=== PATIENT | female | born 1950 | race Caucasian/White ===

== ENCOUNTER 2017-01-30 01:06 | Inpatient (IN) | payer OTHER ==
[2017-01-30] VITALS (7 sets, daily range): BP systolic 110–130; BP diastolic 44–63
[~2017-01-30] VITALS: Ht 165.1 cm; Wt 64.0 kg
[2017-01-30 02:40] LABS: CALCIUM 9.1 mg/dL (8.5-10.1); CARBON DIOXIDE 26.2 mmol/L (21-32); CHLORIDE SERUM 99 mmol/L (98-107); CREATININE SERUM 0.7 mg/dL (0.6-1.0); GFR1 > 60 mL/min; GLUCOSE SERUM 133 mg/dL (74-106); POTASSIUM SERUM 4.1 mmol/L (3.5-5.1); SODIUM SERUM 135 mmol/L (136-145)
[2017-01-30 02:44] LABS: ALBUMIN 3.4 g/dL (3.4-5.0); ALKALINE PHOSPHATASE 70 U/L (46-116); ALT/SGPT 19 U/L (14-59); AST/SGOT 17 U/L (15-37); BILIRUBIN TOTAL 1.73 mg/dL (0.20-1.00); LIPASE 85 IU/L (73-393); TOTAL PROTEIN, SERUM 7.4 g/dL (6.4-8.2)
[2017-01-30 02:45] LABS: AMYLASE 16 U/L (25-115)
[2017-01-30 02:52] LABS: PLATELET COUNT 218 x10^3mcL (130-400); RED CELL DISTRIBUTION WIDTH 13.8 % (11.5-14.5)
[2017-01-30 03:08] LABS: BAND NEUTROPHIL 5 % (0-10); MONOCYTE 4 % (0-7); SEGMENTED NEUTROPHILS 88 % (37-75); rbc morphology (normal/abnorm) NORMAL (NORMAL)
[2017-01-30 03:09] LABS: PLATELET MORPHOLOGY PLATELETS NORMAL
[2017-01-30 05:11] LABS: MAGNESIUM 1.9 mg/dL (1.8-2.4); PHOSPHOROUS 2.9 mg/dL (2.5-4.9)
[2017-01-30 05:15] LABS: T3 TOTAL 0.41 ng/mL
[2017-01-30 05:16] LABS: CHOLESTEROL/HDL RATIO 1.5
[2017-01-30 05:24] LABS: FREE T4 1.15 ng/dL (0.76-1.46); FREE THYROXINE INDEX 2.7 ug/dL (1.4-4.5); T4(THYROXINE) 6.9 ug/dL (4.7-13.3)
[2017-01-30 07:54] LABS: UA SPECIFIC GRAVITY 1.015 (1.005-1.035); microscopic required? YES; urine erythrocyte 1+ (NEGATIVE)
[2017-01-31 05:03] VITALS: BP 137/58
[2017-01-31 06:22] LABS: CALCIUM 8.7 mg/dL (8.5-10.1); CHLORIDE SERUM 103 mmol/L (98-107); CREATININE SERUM 0.6 mg/dL (0.6-1.0); GFR1 > 60 mL/min; GLUCOSE SERUM 102 mg/dL (74-106); MAGNESIUM 2.2 mg/dL (1.8-2.4); POTASSIUM SERUM 3.7 mmol/L (3.5-5.1); SODIUM SERUM 139 mmol/L (136-145)
[2017-01-31 06:30] LABS: BASOPHIL % 0.1 % (0-2); PLATELET COUNT 195 x10^3mcL (130-400)
[2017-01-31 09:05] VITALS: BP 126/52
[2017-01-31 13:05] VITALS: BP 125/53
[2017-01-31 17:23] VITALS: BP 129/58
[2017-01-31 20:30] VITALS: BP 142/63
[2017-02-01 04:55] VITALS: BP 139/65
[2017-02-01 06:15] LABS: BASOPHIL % 0.1 % (0-2); PLATELET COUNT 220 x10^3mcL (130-400); RED CELL DISTRIBUTION WIDTH 13.7 % (11.5-14.5)
[2017-02-01 06:17] LABS: CARBON DIOXIDE 28.1 mmol/L (21-32); CHLORIDE SERUM 101 mmol/L (98-107); CREATININE SERUM 0.6 mg/dL (0.6-1.0); GFR1 > 60 mL/min; GLUCOSE SERUM 98 mg/dL (74-106); PHOSPHOROUS 3.1 mg/dL (2.5-4.9); POTASSIUM SERUM 3.8 mmol/L (3.5-5.1); SODIUM SERUM 138 mmol/L (136-145)
[2017-02-01 10:03] VITALS: BP 150/56
[2017-02-01 17:13] VITALS: BP 136/50
[2017-02-01 21:32] VITALS: BP 147/59
[2017-02-02 05:43] VITALS: BP 139/73
[2017-02-02 06:36] LABS: CALCIUM 9.1 mg/dL (8.5-10.1); CHLORIDE SERUM 101 mmol/L (98-107); CREATININE SERUM 0.5 mg/dL (0.6-1.0); GFR1 > 60 mL/min; GLUCOSE SERUM 118 mg/dL (74-106); MAGNESIUM 1.9 mg/dL (1.8-2.4); PHOSPHOROUS 3.9 mg/dL (2.5-4.9); SODIUM SERUM 139 mmol/L (136-145)
[2017-02-02 06:57] LABS: PLATELET COUNT 256 x10^3mcL (130-400)
[2017-02-02 07:23] LABS: BASOPHIL % 0 % (0-2)
[2017-02-02 09:15] VITALS: BP 116/65
[2017-02-02] MEDS ORDERED: LAC PO (11:15)
[2017-02-02] MEDS ORDERED: KEFLEX250 M1 PO (11:15)
[2017-02-02 11:16] VITALS: BP 116/65
== END 2017-02-02 12:44 | disposition home or self-care (01) | DRG 338 ==
LOC: ED 01:06 → DU 04:02 → MU 02-01 11:54
PROVIDERS: Emergency Medicine; Surgery; ADMIT Family Medicine
PROC: 0DTJ4ZZ Resection of Appendix, Percutaneous Endoscopic Approach (ICD-10-PCS; principal; 2017-01-30 09:00)
DX: K35.2 Acute appendicitis with generalized peritonitis (principal); N17.0 Acute kidney failure with tubular necrosis; K56.7 Ileus, unspecified; E87.1 Hypo-osmolality and hyponatremia; R80.9 Proteinuria, unspecified; R31.9 Hematuria, unspecified; K76.9 Liver disease, unspecified; D32.0 Benign neoplasm of cerebral meninges; E80.6 Other disorders of bilirubin metabolism; F17.210 Nicotine dependence, cigarettes, uncomplicated; R73.9 Hyperglycemia, unspecified
CPT/HCPCS: 83880; 84439; 94150; J0330; J0690; J1100; J1885; J1956; J2250; J2270; J2405; J2543; J2704; J2710; J2765; J3010; J3490; J7030; J7040; J7120; Q0092